=== PATIENT | female | born 1990 | race Caucasian/White ===

== ENCOUNTER 2017-01-20 20:34 | Emergency (ER) | payer SELFPAY ==
[~2017-01-20] VITALS: Ht 160 cm; Wt 75.9 kg
[2017-01-20] MEDS ORDERED: NS 500 ML IV ONE (21:15)
[2017-01-20 21:24] LABS: CONTROL LINE HCG INT CTR LINE PRESENT
[2017-01-20 21:26] LABS: BASO % 0.5 % (0.0-1.0); EOS # 0.1 K/mm3 (0.0-0.50); EOS % 0.9 % (0.0-3.0); LARGE UNSTAINED CELL # 0.1 K/mm3 (0.0-0.4); LARGE UNSTAINED CELL % 1.3 % (0.0-4.0); LYMPH # 2.2 K/mm3 (1.5-6.5); LYMPH % 23.9 % (24.0-44.0); MEAN CORPUSCULAR HEMOGLOBIN 30.2 pg (27.0-33.0); MEAN CORPUSCULAR VOLUME 91.4 fl (80.0-96.0); MONO # 0.5 K/mm3 (0.0-0.8); MONO % 5.9 % (0.0-5.0); NEUTROPHILS # 5.8 K/mm3 (1.8-7.7); NEUTROPHILS % 67.5 % (36.0-66.0); PLATELET COUNT, AUTOMATED 319 k/mm3 (150-450); RED CELL DISTRIBUTION WIDTH 12.7 % (11.5-14.5); WHITE BLOOD COUNT 8.6 K/mm3 (4.0-10.0)
[2017-01-20 21:33] LABS: ALBUMIN 3.8 GM/DL (3.2-5.2); ALBUMIN/GLOBULIN RATIO 1.12 (1.00-1.93); ALKALINE PHOSPHATASE 72 U/L (45-117); ALT/SGPT 15 U/L (12-78); ANION GAP 8 MEQ/L (8-16); AST/SGOT 14 U/L (15-37); BILIRUBIN,DIRECT < 0.1 MG/DL (0.0-0.2); BILIRUBIN,TOTAL 0.2 MG/DL (0.2-1.0); BLOOD UREA NITROGEN 10 MG/DL (7-18); CALCIUM LEVEL 9.1 MG/DL (8.5-10.1); CARBON DIOXIDE LEVEL 26 MEQ/L (21-32); CHLORIDE LEVEL 101 MEQ/L (98-107); CREATININE FOR GFR 0.84 MG/DL (0.55-1.02); GLOMERULAR FILTRATION RATE > 60.0 (>60); GLUCOSE, FASTING 95 MG/DL (70-105); POTASSIUM SERUM 3.8 MEQ/L (3.5-5.1); SODIUM LEVEL 135 MEQ/L (136-145); TOTAL PROTEIN 7.2 GM/DL (6.4-8.2)
[2017-01-20 21:59] LABS: ERYTHROCYTE SEDIMENTATION RATE 35 mm/hr (0-20)
[2017-01-20] MEDS ORDERED: KETOROLAC 30 MG/ML VIAL (J1885) IV ONE (22:45)
[2017-01-21] VITALS: BP 123/76
[2017-01-21] MEDS ORDERED: NORCO 5/325MG TABLET (BULK FOR ED) PO ONE
--- NOTE | 2017-01-21 01:14 | REP ---
Clinical: Chest pain . Comparison: None . Technique: PA and lateral. Findings: The mediastinum and cardiac silhouette are normal. The lung hannah are clear and without acute consolidation, effusion, or pneumothorax. The skeletal structures are intact and normal. Impression: 1. No acute cardiopulmonary process. Signed by Regulo Douglass MD 01/21/2017 01:05 A
--- NOTE | 2017-01-21 08:44 | ECGEPIP ---
Stationary ECG Study [facility] - ED Test Date: 2017-01-20 Pat Name: SUNG GANN Department: Room: - Gender: F [employer] Banquet: tk : [id number] Requested By: JOCELIN Bedoya Order Number: [id number] Reading MD: Sharath Roberts Measurements Intervals Manti Rate: 87 P: 55 TX: 160 QRS: 39 QRSD: 92 T: 31 QT: 374 QTc: 452 Interpretive Statements SINUS RHYTHM POSSIBLE LAE Electronically Signed On 01-21-2017 8:14:41 EDT by Sharath Roberts
== END 2017-01-21 00:09 | disposition home or self-care (01) ==
LOC: M ED 20:34
DX: M94.0 Chondrocostal junction syndrome [Tietze] (principal)
CPT/HCPCS: 71020; 80048; 80076; 82550; 82553; 84443; 84703; 85025; 85379; 85652; 86140; 87040; 93005; 93041; 94760; 96365; 96375; 96376; 99285; J1885